=== PATIENT | male | born 1990 | race Caucasian/White ===

== ENCOUNTER 2019-06-06 17:09 | Emergency (ER) | payer MEDICAID ==
[~2019-06-06] VITALS: Ht 172.7 cm; Wt 109.1 kg
[~2019-06-06 17:09] MED LIST: ACET1TAB12 PO; CLIN-96 PO; LEG1EACH99 MC; LOPE-144 PO
[2019-06-06 17:11] VITALS: BP 153/90
[2019-06-06] MEDS ORDERED: AMOX500C2 PO (17:38)
[2019-06-06] MEDS ORDERED: L. R1CAP4 PO (17:40)
== END 2019-06-06 17:51 | disposition home or self-care (01) ==
LOC: ER 17:10
DX: K02.9 Dental caries, unspecified (principal); K21.9 Gastro-esophageal reflux disease without esophagitis; M19.90 Unspecified osteoarthritis, unspecified site
CPT/HCPCS: 99283

== ENCOUNTER 2021-02-17 11:54 | Emergency (ER) | payer MEDICAID ==
[~2021-02-17] VITALS: Ht 175.3 cm; Wt 113.6 kg
[~2021-02-17 11:54] MED LIST changes: -CLIN-96 PO; +CLIN-97 PO; +L. R1CAP4 PO
[2021-02-17 12:05] VITALS: BP 149/95
[2021-02-17] MEDS ORDERED: ketorolac tromethamine 15mg/ml inj. IM ONE (13:50)
[2021-02-17] MEDS ORDERED: TRAM50TA2 PO (14:52)
[2021-02-17] MEDS ORDERED: ACET-1025 PO (14:52)
== END 2021-02-17 15:09 | disposition home or self-care (01) ==
LOC: ER 11:54
DX: M25.511 Pain in right shoulder (principal); K21.9 Gastro-esophageal reflux disease without esophagitis; M19.90 Unspecified osteoarthritis, unspecified site; Z79.899 Other long term (current) drug therapy
CPT/HCPCS: 73030; 96372; 99283; J1885

== ENCOUNTER 2022-01-04 15:46 | Emergency (ER) | payer MEDICAID ==
[~2022-01-04] VITALS: Ht 175.3 cm; Wt 148.6 kg
[2022-01-04 16:07] VITALS: BP 167/70
[2022-01-04] MEDS ORDERED: HYDROcodone/acetaminophen 10/325mg tab PO STA (16:12)
--- NOTE | 2022-01-04 16:32 | NUR ---
PO MED GIVEN
[2022-01-04] MEDS ORDERED: HYDR-3965 PO (17:40)
== END 2022-01-04 17:47 | disposition home or self-care (01) ==
LOC: ER 15:46
DX: S66.911A Strain of unspecified muscle, fascia and tendon at wrist and hand level, right hand, initial encounter (principal); W19.XXXA Unspecified fall, initial encounter; Y93.89 Activity, other specified; Y92.89 Other specified places as the place of occurrence of the external cause; Y99.8 Other external cause status; I10 Essential (primary) hypertension; K21.9 Gastro-esophageal reflux disease without esophagitis; F17.200 Nicotine dependence, unspecified, uncomplicated; Z79.899 Other long term (current) drug therapy
CPT/HCPCS: 29125; 73090; 73110; 73130; 99284

== ENCOUNTER 2022-11-09 10:13 | Emergency (ER) | payer MEDICAID ==
[~2022-11-09] VITALS: Ht 172.7 cm; Wt 156.8 kg
[2022-11-09 10:45] VITALS: BP 142/86
== END 2022-11-09 13:22 | disposition home or self-care (01) ==
LOC: ER 10:13
DX: M79.672 Pain in left foot (principal); M79.89 Other specified soft tissue disorders; I10 Essential (primary) hypertension; K21.9 Gastro-esophageal reflux disease without esophagitis; Z79.899 Other long term (current) drug therapy; Z79.1 Long term (current) use of non-steroidal anti-inflammatories (NSAID)
CPT/HCPCS: 73630; 99283; L4360

== ENCOUNTER 2023-04-19 15:18 | Emergency (ER) | payer MEDICAID ==
[~2023-04-19] VITALS: Ht 172.7 cm; Wt 185.0 kg
[2023-04-19 15:38] VITALS: BP 163/108; PULSE 78; RESP 18; TEMP 97.8; O2SAT 98
== END 2023-04-19 17:08 | disposition left against medical advice (07) ==
LOC: ER 15:19
DX: K08.89 Other specified disorders of teeth and supporting structures (principal); Z53.21 Procedure and treatment not carried out due to patient leaving prior to being seen by health care provider
CPT/HCPCS: 99281